=== PATIENT | male | born 1975 | race Caucasian/White ===

== ENCOUNTER 2019-04-29 01:44 | Emergency (ER) | payer OTHER ==
--- NOTE | 2019-04-29 02:42 | PDOC ---
Medical Decision Making - Medical Decision Making 04/29/19 02:41 Patient seen by the advanced practice provider under my direct supervision. Ancillary testing reviewed as necessary. I agree with plan as outlined by the advanced practice provider. *DC/Admit/Observation/Transfer Diagnosis at time of Disposition: Back pain at L4-L5 level - Discharge Dispostion Disposition: HOME Condition at time of disposition: Fair - Prescriptions Prescriptions: Cyclobenzaprine HCl [Flexeril -] 10 mg PO TID PRN #12 tablet PRN Reason: Muscle Spasms Ibuprofen 600 mg PO QID PRN #20 tablet PRN Reason: Back Pain - Referrals Referrals: Marky Regan DO [Staff Physician] - Call tomorrow - Patient Instructions Printed Discharge Instructions: Low Back Pain Additional Instructions: do light stretches Apply ice to the area for the first 24 hours. Then alternate with ice and heat after. Take ibuprofen every 6 hours as needed for pain. Take Flexeril as prescribed for muscle spasm. Flexeril can make you sleepy, do not drive or operate heavy machinery after taking the medication. Follow-up with an orthopedic doctor if symptoms persist. A referral was given to you today. Return to the emergency room for any worsening symptoms. - Post Discharge Activity Forms/Work/School Notes: Back to Work
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
[2019-04-29] MEDS ORDERED: diazePAM 5 MG TABLET PO ONE (02:44)
[2019-04-29] MEDS ORDERED: KETOROLAC TROMETHAMINE 30 MG/1 ML VIAL IM ONE (02:44)
[2019-04-29 02:48] VITALS: BP 138/86; PULSE 75; TEMP 98.1; BMI 26.2
== END 2019-04-29 04:45 | disposition home or self-care (01) ==
LOC: JER 01:44
PROC: 3E0233Z Introduction of Anti-inflammatory into Muscle, Percutaneous Approach (ICD-10-PCS; principal; 2019-04-29)
DX: M62.830 Muscle spasm of back (principal)
CPT/HCPCS: 72100-TC-FY; 99282-25

== ENCOUNTER 2019-06-01 08:01 | Emergency (ER) | payer OTHER ==
[2019-06-01 08:07] VITALS: BP 144/74; PULSE 90; TEMP 98.4; BMI 26.2
--- NOTE | 2019-06-01 08:07 | PDOC ---
History of Present Illness - General Chief Complaint: Injury Stated Complaint: LEG INJURY Time Seen by Provider: 06/01/19 08:07 History Source: Patient Exam Limitations: No Limitations Past History - Travel Traveled outside of the country in the last 30 days: No Close contact w/someone who was outside of country & ill: No - Past Medical History Allergies/Adverse Reactions: Allergies Allergy/AdvReac Type Severity Reaction Status Date / Time No Known Allergies Allergy Verified 06/01/19 08:07 Home Medications: Ambulatory Orders Cyclobenzaprine HCl [Flexeril -] 10 mg PO TID PRN #12 tablet 04/29/19 Ibuprofen 600 mg PO QID PRN #20 tablet 04/29/19 Ibuprofen 800 mg PO TID #30 tablet 06/01/19 COPD: No - Suicide/Smoking/Psychosocial Hx Smoking History: Never smoked Have you smoked in the past 12 months: Yes Information on smoking cessation initiated: No Hx Alcohol Use: No Drug/Substance Use Hx: No Review of Systems - Review of Systems Able to Perform ROS?: Yes Comments:: 06/01/19 08:40 CONSTITUTIONAL: Absent: fever, chills, diaphoresis, generalized weakness, malaise, loss of appetite MUSCULOSKELETAL: Present: L ankle pain and swelling Absent: myalgia SKIN: Absent: rash, itching, pallor NEUROLOGIC: Absent: headache, focal weakness or paresthesias, dizziness, unsteady gait, seizure, mental status changes, bladder or bowel incontinence PSYCHIATRIC: Absent: anxiety, depression, suicidal or homicidal ideation, hallucinations. Is the patient limited Moroccan proficient: No *Physical Exam - Vital Signs Last Vital Signs Temp Pulse Resp BP Pulse Ox 98.4 F 90 19 144/74 100 06/01/19 08:04 06/01/19 08:04 06/01/19 08:04 06/01/19 08:04 06/01/19 08:04 - Physical Exam Comments: 06/01/19 08:41 GENERAL: The patient is awake, alert, and fully oriented, in no acute distress. HEAD: Normal with no signs of trauma. EYES: Pupils equal, round and reactive to light, extraocular movements intact, sclera anicteric, conjunctiva clear. EXTREMITIES: Tenderness to palpation of the left lateral malleolus with associated swelling. No bruising at this time noted. Strength in the left ankle is 4 out of 5 due to pain. Decreased range of motion due to pain and swelling. Negative Sandoval test. No pain over the fifth metatarsal. Normal range of motion at all other joints. No edema. NEUROLOGICAL: Normal speech, normal gait. PSYCH: Normal mood, normal affect. SKIN: 2cm abrasion to the L lateral malleolus. Warm, Dry, normal turgor, no rashes or lesions noted. Medical Decision Making - Medical Decision Making 06/01/19 08:45 the patient is a 43-year-old male, [employer] worker, who presents to the ER today with left ankle pain. He states that he and a coworker for lifting a heavy metal box, when his coworker dropped a box on his ankle. He states that the box hit his left ankle. He states that it swelled up so he came to the ER for evaluation. He also notes that he has a scrape on the ankle. He does not member the date of his last tetanus. Denies fevers, chills, numbness and tingling and weakness to the affected extremity. A/P: Left ankle sprain On exam patient with tenderness to palpation of the left lateral malleolus with associated swelling. Strength and range of motion are slightly decreased due to pain. Overlying abrasion to the left lateral malleolus. [facility] updated today X-ray obtained is negative for fractures as read by radiology. Most likely an ankle sprain. Will discharge home with supportive therapy and orthopedic follow-up. I discussed the physical exam findings, ancillary test results and final diagnoses with the patient. I answered all of the patient's questions. The patient was satisfied with the care received and felt comfortable with the discharge plan and treatment plan. The Patient agrees to follow up with the primary care physician/specialist within 24-72 hours. Return precautions were given. *DC/Admit/Observation/Transfer Diagnosis at time of Disposition: Left ankle pain Qualifiers: Chronicity: acute Qualified Code(s): M25.572 - Pain in left ankle and joints of left foot - Discharge Dispostion Disposition: HOME Condition at time of disposition: Stable Decision to Admit order: No - Referrals Referrals: Jcarlos Clark MD [Staff Physician] - - Patient Instructions Printed Discharge Instructions: DI for Ankle Sprain Additional Instructions: You sprained your ankle. Your x-ray was negative for broken bones. Please keep your ankle elevated while at rest above the level of your heart to reduce swelling. You may take Motrin 800 mg every 8 hours to help reduce pain and swelling. Please ice the area for 20 minute intervals at least 5 times a day to help reduce swelling. Please wear the Jesús wrap. Please follow-up with orthopedics in 1 week if your symptoms are not improving. Return to the emergency department if you have worsening pain, or unable to walk , numbness and tingling of the foot, or had any changes in her symptoms. - Post Discharge Activity Forms/Work/School Notes: Back to Work
[2019-06-01] MEDS ORDERED: DIPHTH,PERTUSS(ACELL),TET 0.5 ML DISP.SYRIN IM ONE ×2 (08:40→08:47)
[2019-06-01] MEDS ORDERED: IBUPROFEN 400 MG TABLET (FP) PO ONE ×2 (08:44→08:47)
[2019-06-01] MEDS ORDERED: BACITRACIN 15 GM TUBE TOPICAL OINTMENT ONE (08:46)
== END 2019-06-01 09:05 | disposition home or self-care (01) ==
LOC: JERFT 08:01
PROC: 3E0234Z Introduction of Serum, Toxoid and Vaccine into Muscle, Percutaneous Approach (ICD-10-PCS; principal; 2019-06-01)
DX: S93.402A Sprain of unspecified ligament of left ankle, initial encounter (principal); S90.512A Abrasion, left ankle, initial encounter; W22.8XXA Striking against or struck by other objects, initial encounter; Y93.89 Activity, other specified; Y92.89 Other specified places as the place of occurrence of the external cause; Y99.0 Civilian activity done for income or pay
CPT/HCPCS: 73610-TC-LT-FY; 73630-TC-LT; 90715; 99282-25

== ENCOUNTER 2019-09-20 10:55 | Emergency (ER) | payer BC ==
[2019-09-20 11:15] VITALS: BP 131/82; PULSE 100; TEMP 100.7; BMI 26.2
[2019-09-20] MEDS ORDERED: ACETAMINOPHEN 500 MG TABLET (FP) PO ONE (11:22)
--- NOTE | 2019-09-20 11:27 | PDOC ---
History of Present Illness - General Chief Complaint: Toothache Stated Complaint: TOOTHACHE Time Seen by Provider: 09/20/19 11:14 History Source: Patient Exam Limitations: No Limitations - History of Present Illness Initial Comments: 09/20/19 11:24 HISTORY OF PRESENT ILLNESS: This a 44-year-old male denies medical history presents to the emergency department for evaluation of toothache to his right lower molar starting on Saturday. Patient noted progressive swelling localized to the area surrounding the tooth starting yesterday. Patient reports the pain migrates to his right ear and temporal region. He denies any discharge or drainage from his tooth or any foul taste in his mouth. No recent travel or sick contacts. PAST MEDICAL HISTORY: Denies past medical history SURGICAL HISTORY: Denies ALLERGIES: No known drug allergies REVIEW OF SYSTEMS General/Constitutional: Denies fever or chills. Denies weakness, weight change. HEENT: See HPI Cardiovascular: Denies chest pain or shortness of breath. Respiratory: Denies cough, wheezing, or hemoptysis. Gastrointestinal: Denies nausea, vomiting, diarrhea or constipation. Denies rectal bleeding. Genitourinary: Denies dysuria, frequency, or change in urination. Musculoskeletal: Denies joint or muscle swelling or pain. Denies neck or back pain. Skin and breasts: Denies rash or easy bruising. Neurologic: Denies headache, vertigo, loss of consciousness, or loss of sensation. Psychiatric: Denies depression or anxiety. Endocrine: Denies increased thirst. Denies abnormal weight change. Hematologic/Lymphatic: Denies anemia, easy bleeding, or history of blood clots. Allergic/Immunologic: Denies hives or skin allergy. Denies latex allergy. PHYSICAL EXAM General Appearance: Well-appearing, appropriately dressed. No apparent distress , no intoxication. HEENT: EOMI, PERRLA, normal ENT inspection, normal voice, TMs normal, pharynx normal. No conjunctival pallor. No photophobia, scleral icterus. Poor dentition with no multiple dental caries. Significant dental caries present to tooth #30 with almost complete removal of exposed dentin. Palpable abscess present at the buccal side at the base of the tooth. Swelling is localized to tooth #30. Unable to express any fluid with palpation of the tooth or gingival surfaces. Neck: Supple. Trachea midline. No tenderness, rigidity, carotid bruit, stridor , lymphadenopathy, or thyromegaly. Respiratory/Chest: Lungs CTAB. No shortness of breath, chest tenderness, respiratory distress, accessory muscle use. No crackles, rales, rhonchi, stridor , wheezing, dullness Cardiovascular: RRR. S1, S2. No JVD, murmur, bradycardia, tachycardia. Neurologic: ultrasonic hand solderer II-XII intact. Fully oriented, alert. Appropriate mood/affect. Motor strength 5/5. No appreciable EOM palsy, facial droop or sensory deficit. Past History - Past Medical History Allergies/Adverse Reactions: Allergies Allergy/AdvReac Type Severity Reaction Status Date / Time No Known Allergies Allergy Verified 09/20/19 11:12 Home Medications: Ambulatory Orders Cyclobenzaprine HCl [Flexeril -] 10 mg PO TID PRN #12 tablet 04/29/19 Ibuprofen 600 mg PO QID PRN #20 tablet 04/29/19 Ibuprofen 800 mg PO TID PRN #30 tablet 09/20/19 Penicillin V Potassium [Pen Vee K -] 500 mg PO QID #28 tablet 09/20/19 COPD: No - Psycho Social/Smoking Cessation Hx Smoking History: Current every day smoker Have you smoked in the past 12 months: Yes Number of Cigarettes Smoked Daily: 10 Information on smoking cessation initiated: No Hx Alcohol Use: No Drug/Substance Use Hx: No *Physical Exam - Vital Signs Last Vital Signs Temp Pulse Resp BP Pulse Ox 100.7 F H 100 H 18 131/82 99 09/20/19 11:09 09/20/19 11:09 09/20/19 11:09 09/20/19 11:09 09/20/19 11:09 Medical Decision Making - Medical Decision Making 09/20/19 11:23 A/P: 44-year-old male with dental abscess at the base of tooth #30 Palpable abscess presents on the buccal surface of the mandible No discharge or drainage present Large dental carry present to tooth #30 Tylenol 1 g orally now Discharge home with prescription for Pen-Vee K to be taken and recommendation to see a dentist for abscess drainage and continued dental work. Discharge - Discharge Information Problems reviewed: Yes Clinical Impression/Diagnosis: Dental abscess Condition: Stable Disposition: HOME - Admission No - Additional Discharge Information Prescriptions: Ibuprofen 800 mg PO TID PRN #30 tablet PRN Reason: Pain Penicillin V Potassium [Pen Vee K -] 500 mg PO QID #28 tablet - Follow up/Referral - Patient Discharge Instructions Patient Printed Discharge Instructions: DI for Tooth Abscess Additional Instructions: Rest, drink lots of fluids: Teas, water, soups Saltwater gargles/ keep mouth clean and rinse after each meal May use wet teabag for pain relief to area Avoid hard chewing foods, stick to ice cream, Jell-O, yogurt etc. Tylenol or Motrin for fever and pain Complete all medication as prescribed Call [facility] at [phone] Followup with private physician in one to 2 days as needed Return to emergency department for worsened symptoms, fevers, swelling to face or worsened pain - Post Discharge Activity Work/Back to School Note: Back to Work
== END 2019-09-20 11:37 | disposition home or self-care (01) ==
LOC: JERFT 10:55
DX: K04.7 Periapical abscess without sinus (principal); F17.210 Nicotine dependence, cigarettes, uncomplicated
CPT/HCPCS: 99281-25

== ENCOUNTER 2019-11-23 19:00 | Emergency (ER) | payer BC ==
[2019-11-23] MEDS ORDERED: KETOROLAC TROMETHAMINE 60 MG/2 ML VIAL IM ONE (19:10)
--- NOTE | 2019-11-23 19:10 | PDOC ---
Rapid Medical Evaluation Time Seen by Provider: 11/23/19 19:08 Medical Evaluation: Allergies Allergy/AdvReac Type Severity Reaction Status Date / Time No Known Allergies Allergy Verified 09/20/19 11:12 11/23/19 19:09 Pt c/o: low back pain x 3 days , freq lifting at work, garbage pick-up Pt on brief exam: rt paraspinous tenderness, no sciatica tenderness pt ordered for: toradol, flexeril Pt to proceed to the ED Discharge Disposition - Diagnosis Back pain - Discharge Dispostion Disposition: HOME Condition at time of disposition: Stable - Prescriptions Prescriptions: Cyclobenzaprine HCl [Flexeril 10 mg] 10 mg PO HS PRN #10 tablet PRN Reason: Muscle Spasms Ibuprofen [Motrin -] 600 mg PO TID #30 tablet - Referrals Referrals: Florian Marroquin MD, [facility] [Staff Physician] - - Patient Instructions Additional Instructions: Please start the Motrin and Flexeril tomorrow as you were given a long-acting injection in the emergency room. Return to the emergency room for worsening symptoms and without fail follow-up with neurosurgery in 2 to 3 days for further evaluation and treatment options. - Post Discharge Activity Work/School Note: Back to Work
[2019-11-23 19:12] VITALS: BP 124/56; PULSE 71; TEMP 98.6; BMI 26.2
[2019-11-23] MEDS ORDERED: KETOROLAC TROMETHAMINE 60 MG/2 ML VIAL ONE (20:30)
[2019-11-23] MEDS ORDERED: CYCLOBENZAPRINE HCL 5 MG TABLET PO ONE (20:31)
[2019-11-23] MEDS ORDERED: CYCLOBENZAPRINE HCL 10 MG TABLET (FP) ONE (20:31)
[2019-11-23] MEDS: CYCLOBENZAPRINE HCL 10 MG TABLET (FP) PO ONE ×2 (20:39→20:41)
--- NOTE | 2019-11-23 20:53 | PDOC ---
History of Present Illness - General Chief Complaint: Back Pain Stated Complaint: BACK PAIN Time Seen by Provider: 11/23/19 19:08 - History of Present Illness Initial Comments: 11/23/19 20:51 44-year-old male without comorbidities presents for evaluation of lower back pain x2 days no systemic symptoms no radicular symptoms no loss of bowel bladder function or saddle paresthesias Past History - Past Medical History Allergies/Adverse Reactions: Allergies Allergy/AdvReac Type Severity Reaction Status Date / Time No Known Allergies Allergy Verified 09/20/19 11:12 Home Medications: Ambulatory Orders Cyclobenzaprine HCl [Flexeril -] 10 mg PO TID PRN #12 tablet 04/29/19 Ibuprofen 600 mg PO QID PRN #20 tablet 04/29/19 Ibuprofen 800 mg PO TID PRN #30 tablet 09/20/19 Penicillin V Potassium [Pen Vee K -] 500 mg PO QID #28 tablet 09/20/19 Cyclobenzaprine HCl [Flexeril 10 mg] 10 mg PO HS PRN #10 tablet 11/23/19 Ibuprofen [Motrin -] 600 mg PO TID #30 tablet 11/23/19 COPD: No - Immunization History Immunization Up to Date: No - Psycho Social/Smoking Cessation Hx Smoking History: Never smoked Have you smoked in the past 12 months: No Number of Cigarettes Smoked Daily: 10 Information on smoking cessation initiated: No Hx Alcohol Use: No Drug/Substance Use Hx: No Review of Systems - Review of Systems Musculoskeletal: Yes: Back Pain *Physical Exam - Vital Signs Last Vital Signs Temp Pulse Resp BP Pulse Ox 98.6 F 71 18 124/56 L 99 11/23/19 19:09 11/23/19 19:09 11/23/19 19:09 11/23/19 19:09 11/23/19 19:09 - Physical Exam 11/23/19 20:52 Lumbar spine skin color temperature normal range of motion is limited. No midline tenderness moderate bilateral lumbar musculature spasm and tenderness. 5 out of 5 strength bilateral lower extremities without gross sensorimotor deficits thighs and calves are soft and nontender neurovascular intact. ED Treatment Course - Medications Given in the ED: ED Medications Discontinued Medications Generic Name Dose Route Start Last Admin Trade Name Freq PRN Reason Stop Dose Admin Cyclobenzaprine HCl 5 mg 11/23/19 19:10 11/23/19 20:41 Flexeril - PO 11/23/19 19:11 Not Given ONCE ONE Cyclobenzaprine HCl 10 mg 11/23/19 20:31 11/23/19 20:41 Cyclobenzaprine Hcl PO 11/23/19 20:32 10 mg ONCE ONE Administration Ketorolac Tromethamine 60 mg 11/23/19 19:10 11/23/19 20:39 Toradol Injection - IM 11/23/19 19:11 60 mg ONCE ONE Administration Medical Decision Making - Medical Decision Making 11/23/19 20:52 Mild relief with Toradol Flexeril in the emergency room follow-up with neurosurgery Discharge - Discharge Information Problems reviewed: Yes Clinical Impression/Diagnosis: Back pain Condition: Stable Disposition: HOME - Admission No - Additional Discharge Information Prescriptions: Cyclobenzaprine HCl [Flexeril 10 mg] 10 mg PO HS PRN #10 tablet PRN Reason: Muscle Spasms Ibuprofen [Motrin -] 600 mg PO TID #30 tablet - Follow up/Referral Referrals: Florian Marroquin MD, [facility] [Staff Physician] - - Patient Discharge Instructions Additional Instructions: Please start the Motrin and Flexeril tomorrow as you were given a long-acting injection in the emergency room. Return to the emergency room for worsening symptoms and without fail follow-up with neurosurgery in 2 to 3 days for further evaluation and treatment options. - Post Discharge Activity Work/Back to School Note: Back to Work
== END 2019-11-23 21:24 | disposition home or self-care (01) ==
LOC: JERFT 19:00
PROC: 3E0233Z Introduction of Anti-inflammatory into Muscle, Percutaneous Approach (ICD-10-PCS; principal; 2019-11-23)
DX: M54.5 Low back pain (principal)
CPT/HCPCS: 99281-25